=== PATIENT | female | born 1940 | race Caucasian/White ===

== ENCOUNTER 2022-07-22 23:55 | Inpatient (IN) | payer MEDICARE, OTHER ==
[~2022-07-22] VITALS: Ht 165.1 cm; Wt 67.6 kg
--- NOTE | 2022-07-23 00:20 | NUR ---
bibdebi, from [place] c/o abd distension since this morning, on room air, breathing evenly and unlabored. Kept comfortable, will continue to monitor accordingly.
[2022-07-23 00:57] LABS: BASOPHILS % (AUTO) 0.2 % (0.0-2.0); HEMATOCRIT 30 % (33-45); HEMOGLOBIN 9.8 g/dL (11.5-14.8); LYMPHOCYTES # (AUTO) 0.8 K/uL (0.8-4.8); LYMPHOCYTES % (AUTO) 6.9 % (20.0-44.0); MEAN CORPUSCULAR HGB CONC 33 g/dl (31.0-36.0); MEAN CORPUSCULAR VOLUME 89 fL (82-100); MONOCYTES % (AUTO) 8.6 % (2.0-12.0); NEUTROPHILS # (AUTO) 9.7 K/uL (1.8-8.9); NEUTROPHILS % (AUTO) 84.3 % (43.0-81.0); PLATELET COUNT (AUTO) 329 K/uL (150-450); WHITE BLOOD COUNT (AUTO) 11.5 K/uL (4.3-11.0)
--- NOTE | 2022-07-23 01:08 | NUR ---
wheeled patient to ct
[2022-07-23 01:15] LABS: ALANINE AMINOTRANSFERASE 26 U/L (12-78); ALBUMIN 2.5 g/dL (3.4-5.0); ALKALINE PHOSPHATASE 82 U/L (46-116); ASPARTATE AMINOTRANSFERASE 23 U/L (15-37); BILIRUBIN,DIRECT 0.2 mg/dL (0.0-0.2); BILIRUBIN,TOTAL 0.6 mg/dL (0.2-1.0); CALCIUM, SERUM 8.7 mg/dL (8.5-10.1); CARBON DIOXIDE 25 mmol/L (21-32); CHLORIDE 103 mmol/L (98-107); CREATININE 0.6 mg/dL (0.6-1.3); GLUCOSE 137 mg/dL (74-106); LIPASE 62 U/L (73-393); SODIUM SERUM 142 mmol/L (136-145); TOTAL PROTEIN, SERUM 6.9 g/dL (6.4-8.2); UREA NITROGEN, BLOOD 23 mg/dL (7-18)
[2022-07-23 01:19] LABS: POTASSIUM 2.5 mmol/L (3.5-5.1)
--- NOTE | 2022-07-23 01:52 | NUR ---
covid swab collected and sent to lab.
[2022-07-23] MEDS: POTASSIUM CL. PREMIX PERIPHER. 50 ML IV SCH ×4 (03:00→06:00)
[2022-07-23] MEDS ORDERED: POTASSIUM CL. PREMIX PERIPHER. 200 ML ONE (03:05)
--- NOTE | 2022-07-23 04:20 | NUR ---
epic panel paged
[2022-07-23] MEDS ORDERED: ZOLPIDEM TARTRATE 5 MG TABLET PO PRN (05:30)
[2022-07-23] MEDS ORDERED: MAG HYDROX/AL HYDROX/SIMETH 30 ML UDC PO PRN (05:30)
[2022-07-23] MEDS ORDERED: Z GUARD REMEDY 4 OZ OINT TP PRN (05:30)
[2022-07-23] MEDS ORDERED: ACETAMINOPHEN 325 MG TABLET PO PRN (05:30)
[2022-07-23] MEDS ORDERED: MAGNESIUM HYDROXIDE 30 ML UDC PO PRN (05:30)
[2022-07-23] MEDS ORDERED: ONDANSETRON HCL/PF 4 MG/2 ML VIAL IVP PRN (05:30)
[2022-07-23] MEDS ORDERED: DEXTROSE 50%-WATER 50 ML DISP.SYRIN IV PRN (05:30)
[2022-07-23] MEDS ORDERED: POTASSIUM CL. PREMIX PERIPHER. 50 ML ONE (07:39)
--- NOTE | 2022-07-23 07:55 | NUR ---
going to 307.1 admitting aware
[2022-07-23] MEDS: BLOOD SUGAR DIAGNOSTIC 1 EACH STRIP IN SCH ×4 (07:58→22:26)
--- NOTE | 2022-07-23 08:21 | NUR ---
Report given to SUZANNE Queen
--- NOTE | 2022-07-23 08:38 | NUR ---
Patient transferred to [facility], all care endorsed to SUZANNE Queen
[2022-07-23] MEDS ORDERED: PANTOPRAZOLE 40 MG VIAL IV SCH (09:00)
[2022-07-23] MEDS ORDERED: MULT-447 PO (09:15)
[2022-07-23] MEDS ORDERED: ACET-868 PO (09:15)
[2022-07-23] MEDS ORDERED: CLON0.1T PO (09:15)
[2022-07-23] MEDS ORDERED: SENN-261 PO (09:15)
[2022-07-23] MEDS ORDERED: DIVA-76 PO (09:15)
[2022-07-23] MEDS ORDERED: GLUC1KIT SQ (09:15)
[2022-07-23] MEDS ORDERED: MEGE400O5 PO (09:15)
[2022-07-23] MEDS ORDERED: ALBU2.5V38 IH (09:15)
[2022-07-23] MEDS ORDERED: PANT40TA2 PO (09:15)
[2022-07-23] MEDS ORDERED: ACET-2605 PO (09:15)
[2022-07-23] MEDS ORDERED: IPRA0.2S9 IH (09:15)
[2022-07-23] MEDS ORDERED: ASCO-352 PO (09:15)
[2022-07-23] MEDS ORDERED: GUAI100S11 PO (09:15)
[2022-07-23] MEDS ORDERED: QUET25TA PO ×2 (09:15)
[2022-07-23] MEDS ORDERED: BISA10SU11 RC (09:15)
[2022-07-23] MEDS ORDERED: MIRT-90 PO (09:15)
[2022-07-23] MEDS ORDERED: NA P133E RC (09:15)
[2022-07-23] MEDS: ZOSYN IVPB 2.25 G in IV D5W 50ml IV SCH ×3 (10:26→18:14)
[2022-07-23 12:00] VITALS: BP 123/66
[2022-07-23] MEDS ORDERED: PIPERACILLIN /TAZOBACTAM 3.375 G in IV D5W 50 ML IV SCH (13:00)
--- NOTE | 2022-07-23 13:50 | NUR ---
HEALTHCARE ADMINISTRATIVE ASSISTANT NOTES ADMITTED AN 81 YO FEMALE FROM ER WITH CC OF ABDOMINAL DISTENTION AND D OF HYPOKALEMIA , A/O X 1 WITH CONFUSION , ANGRY WHEN YOU APPROACH , ANXIOUS AGITATE EASILY AND CURSING STAFF . V/S TAKEN AND RECORDED BP 116/58, P 99 R 18 , TEMP 98.6 , O2 SAT 93 % ROOM AIR , BODY ASSESSMENT DONE AN NOTED WITH EDEMA ON BOTH LOWER EXTREMITIES , SKIN DISCOLORATION ON BOTH LOWER AND UPPER EXTREMITIES ,IV ACCESS ON LEFT FA G #18 SL , KEPT DRY AND CLEAN , JUSTICE COURT JUDGE ATTACHED WITH READING OF SR 84 PAC , NO SOB OR DISTRESS NOTED , NO C/O OF PAIN AND DISCOMFORT , SAFETY MEASURES PROVIDED , BED ON LOWEST LOCKED POSITION , CALL LIGHT WITHIN REACH , WILL CONTINUE TO MONITOR .
[2022-07-23] MEDS: LACTULOSE 10 G/15 ML UDC (PYXIS) PO SCH ×2 (14:23→20:14)
[2022-07-23 16:00] VITALS: BP 112/62
--- NOTE | 2022-07-23 18:35 | NUR ---
RN CLOSING NOTES PATIENT ON BED AWAKE , A/O X1 WITH CONFUSION AND FORGETFULNESS , ALL DUE MEDS GIVEN ORDERED , NO SOB OR DISTRESS NOTED , BS CHECKED WITH NO S/S OF HYPOGLYCEMIA , IV ACCESS LEFT FA #18 INTACT AND AND PATENT . DIET WAS CHANGED FROM NPO TO CCHO SOFT DIET AND PATIENT ABLE TOLERATE SOUP AND DRINK JUICE , URINE WAS COLLECTED AND LAB AWARE FOR EXPENSE ANALYST . KEPT DRY AND CLEAN AND ALL NEEDS ATTENDED .
--- NOTE | 2022-07-23 19:37 | NUR ---
noc rn opening note received patient sleeping easy to arouse. a/ox2. no s/s of apparent distress on room air. patient abdomen distended, oft to palpate and denies pain upon palpation. patient reports passing gas but cannot remember last BM. reading sr on the rosie monitor with 85 bpm. lfa #18 g on saline lock. safety in place-- bed in lowest, locked position, side rails upX4, bed alarm in place. will continue with patient's plan of care.
[2022-07-23 20:00] VITALS: BP 116/54
[2022-07-23 20:02] LABS: BILIRUBIN,URINE NEGATIVE (NEGATIVE); COLOR,URINE YELLOW (YELLOW); LEUKOCYTE ESTERASE ,URINE 1+ (NEGATIVE); NITRITE, URINE NEGATIVE (NEGATIVE); PROTEIN,URINE 1+ mg/dl (NEGATIVE); UGLUCOSE NEGATIVE (NEGATIVE)
[2022-07-23 20:14] LABS: CREATININE, URINE 118.4 MG/DL (30.0-125.0)
[2022-07-23 20:15] LABS: RBC,URINE 0-2 /HPF (0-2)
[2022-07-23 20:16] LABS: BACTERIA,URINE 3+ /HPF (None Seen); MUCUS,URINE Few /LPF (None Seen)
--- NOTE | 2022-07-23 20:45 | NUR ---
noc rn note Kidney ultrasound getting done at bedside at this time.
--- NOTE | 2022-07-23 22:29 | NUR ---
noc rn note patient refusing diaper change at this time. Patient is labile. wanting INTEGRATION SPECIALIST and nurse to "Get the hell out" at this time and to quote "You bunch of pussy seekers you're disturbing the peace!" will try again when patient behavior permits.
[2022-07-23] MEDS: INSULIN REGULAR, HUMAN 100 UNIT/ML 3 ML VIAL SQ PRN (22:33)
[2022-07-24] VITALS: BP 115/59
[2022-07-24] MEDS: ZOSYN IVPB 2.25 G in IV D5W 50ml IV SCH ×5 (00:10→23:47)
[2022-07-24] MEDS ORDERED: POTASSIUM CHLORIDE 20 MEQ TAB.PRT.SR PO ONE ×2 (01:30→05:30)
--- NOTE | 2022-07-24 01:38 | NUR ---
noc rn note Patient new potassium 2.9 after 4 bags given in ER. Messaged hospitalist Sumit Madera and ordered Kdur 4meq Q4 HR X2. Awaiting for order to be verified
--- NOTE | 2022-07-24 01:46 | NUR ---
noc rn note called [facility] for Kdur to be verified. awaiting.
[2022-07-24] MEDS: LACTULOSE 10 G/15 ML UDC (PYXIS) PO SCH ×6 (03:18→23:48)
--- NOTE | 2022-07-24 03:18 | NUR ---
nco rn note 0200 scheduled lactulosee given late since patient just took Kdur an hour ago. also got an admission with family members at bedside I cannot leave.
[2022-07-24 05:00] VITALS: BP 126/90
[2022-07-24 05:53] LABS: BASOPHILS % (AUTO) 0.5 % (0.0-2.0); HEMATOCRIT 29 % (33-45); HEMOGLOBIN 9.2 g/dL (11.5-14.8); LYMPHOCYTES # (AUTO) 1.4 K/uL (0.8-4.8); LYMPHOCYTES % (AUTO) 19.3 % (20.0-44.0); MEAN CORPUSCULAR HGB CONC 32 g/dl (31.0-36.0); MEAN CORPUSCULAR VOLUME 90 fL (82-100); MONOCYTES # (AUTO) 0.6 K/uL (0.1-1.30); MONOCYTES % (AUTO) 8.6 % (2.0-12.0); NEUTROPHILS # (AUTO) 5.1 K/uL (1.8-8.9); NEUTROPHILS % (AUTO) 71.6 % (43.0-81.0); PLATELET COUNT (AUTO) 296 K/uL (150-450); RED BLOOD CELL COUNT(AUTO) 3.16 MIL/uL (4.0-5.2); WHITE BLOOD COUNT (AUTO) 7.1 K/uL (4.3-11.0)
[2022-07-24 06:07] LABS: CALCIUM, SERUM 9.1 mg/dL (8.5-10.1); CREATININE 0.6 mg/dL (0.6-1.3); POTASSIUM 3.3 mmol/L (3.5-5.1)
[2022-07-24] MEDS: BLOOD SUGAR DIAGNOSTIC 1 EACH STRIP IN SCH ×4 (06:42→21:36)
[2022-07-24] MEDS: INSULIN REGULAR, HUMAN 100 UNIT/ML 3 ML VIAL SQ PRN ×2 (06:43→21:37)
--- NOTE | 2022-07-24 06:44 | NUR ---
noc rn note patient has no noted BM, abdomen still distended and soft upon palpation. Patient denies passing gas. denies N/V. Charge nurse Iris aware. No answer from hospitalist yet.
--- NOTE | 2022-07-24 07:19 | NUR ---
noc closing note all needs attended. all scheduled medications administered. will endorse to morning shift rn for continuity of care.
--- NOTE | 2022-07-24 07:35 | NUR ---
LEAF SIZE PICKER OPENING NOTE RECEIVED PATIENT AWAKE IN BED. A/OX2. PT IS ON RA BREATHING EVEN AND NON LABORED. NO S/S OF DISTRESS/SOB NOTED AT THIS TIME. NOTED DISTENDED ABDOMEN, SOFT WHILE PALPATION. NO C/O PAIN AT THIS TIME. PT IS ON EXTERNAL PROBATE CLERK READING SR @89 BPM. IV ACCESS: LEFT FA #18G, INTACT AND PATENT, SL. SAFETY MEASURES IN PLACE: BED IN LOCKED, LOWEST POSITION, SIDE RAILS UPX4. BED ALARM ON. CALL LIGHT AND BEDSIDE TABLE WITHIN EASY REACH. WILL CONTINUE TO MONITOR.
[2022-07-24 08:00] VITALS: BP 116/70
[2022-07-24] MEDS: PANTOPRAZOLE 40 MG/PACK PACK PO SCH (08:41)
--- NOTE | 2022-07-24 09:31 | NUR ---
WOUND CARE CONSULT: PT PRESENTS WITH SACRAL INTACT DEEP TISSUE INJURY, PRESENT ON ADMISSION. PT ALSO NOTED TO HAVE DISCOLORATION TO LOWER LEGS, PRESENT ON ADMISSION. DISCUSSED SKIN PROTECTION WITH NURSING STAFF. PT IS INCONTINENT. MD IN AGREEMENT WITH PLAN OF CARE.
[2022-07-24] MEDS ORDERED: POTASSIUM CHLORIDE 20 MEQ POWDER PACKET PO ONE (10:00)
[2022-07-24 12:00] VITALS: BP 127/72
[2022-07-24 15:58] VITALS: BP 143/64
[2022-07-24] MEDS: PROSOURCE / PROSTAT (PYXIS) 30 ML UDC GT SCH (16:50)
[2022-07-24] MEDS: GLUCERNA SHAKE 237 ML CAN PO SCH (16:51)
--- NOTE | 2022-07-24 18:36 | NUR ---
DOCUMENT IMPROVEMENT SPECIALIST CLOSING NOTE PATIENT AWAKE IN BED. A/OX2 WITH CONFUSION. PT IS ON RA BREATHING EVEN AND NON LABORED. NO S/S OF DISTRESS/SOB NOTED AT THIS TIME. NOTED DISTENDED ABDOMEN, SOFT WHILE PALPATION, PT HAD BMX1 DURING THE SHIFT. APPLIED PUREWICK FOR THE PATIENT PER JENNYFER REQUEST, WOUND NURSE. NO C/O PAIN AT THIS TIME. PT IS ON EXTERNAL HAIR DRESSER READING ST @104 BPM. IV ACCESS: LEFT FA #18G, INTACT AND PATENT, SL. KEPT PT C/D/I, REPOSITIONED Q2H, OFFLOADED B HEELS. SAFETY MEASURES IN PLACE: BED IN LOCKED, LOWEST POSITION, SIDE RAILS UPX4. BED ALARM ON. CALL LIGHT AND BEDSIDE TABLE WITHIN EASY REACH. WILL ENDORSE TO ONCOMING SHIFT NURSE FOR TAMARA.
--- NOTE | 2022-07-24 19:20 | NUR ---
NIKE ATHLETE OPENING NOTE RECEIVED PT AWAKE IN BED. A/O X1-2 AND ABLE TO MAKE NEEDS KNOWN. PT STABLE ON ROOM AIR. NO SOB OR S/S OF RESPIRATORY DISTRESS. BREATHING EVEN AND UNLABORED. ON EXTERNAL SPECIAL SERVICE REPRESENTATIVE READING ST 106 BPM. WITH IV ACCESS LFA 18G SL, INTACT AND PATENT. WITH PURWICK DRAINING BY SUCTION. SAFETY PRECAUTIONS IN PLACE. BED IN LOWEST LOCKED POSITION, HOB ELEVATED, SIDE RAILS UP X3, AND CALL LIGHT AND TABLE WITHIN REACH. ALL NEEDS MET AT THIS TIME.
[2022-07-24 20:00] VITALS: BP 109/43
[2022-07-25] VITALS: BP 157/61
[2022-07-25] MEDS: LACTULOSE 10 G/15 ML UDC (PYXIS) PO SCH ×5 (04:00→21:03)
--- NOTE | 2022-07-25 04:43 | NUR ---
RN NOTE PT REFUSED LACTULOSE AT THIS TIME. STATED "I JUST WANNA SLEEP. GO AWAY". ATTEMPTED EDUCATION BUT PT STILL REFUSED. ALL NEEDS MET AT THIS TIME.
[2022-07-25] MEDS: ZOSYN IVPB 2.25 G in IV D5W 50ml IV SCH ×3 (06:04→17:49)
--- NOTE | 2022-07-25 06:33 | NUR ---
B2B SALES PROFESSIONAL CLOSING NOTE PT AWAKE IN BED. A/O X1-2 AND ABLE TO MAKE NEEDS KNOWN. LABILE MOOD, CURSING AND YELLING THIS AM, REFUSING LAB DRAW AND BLOOD SUGAR CHECK. PT STABLE ON ROOM AIR. NO SOB OR S/S OF RESPIRATORY DISTRESS. BREATHING EVEN AND UNLABORED. ON EXTERNAL SUPERVISOR ADULT EDUCATION READING SR 82 BPM. WITH IV ACCESS LFA 18G SL, INTACT AND PATENT, RUNNING ZOSYN @ 100 ML/HR. PURWICK REMOVED BY PT AND REFUSING PLACEMENT THIS AM. SAFETY PRECAUTIONS IN PLACE AT ALL TIMES. BED IN LOWEST LOCKED POSITION, HOB ELEVATED, SIDE RAILS UP X3, AND CALL LIGHT AND TABLE WITHIN REACH. ALL NEEDS MET AT THIS TIME AND WILL ENDORSE TO ONCOMING NURSE FOR TAMARA.
--- NOTE | 2022-07-25 07:26 | NUR ---
TELEPHONE EXCHANGE OPERATOR OPENING NOTE RECEIVED PT AWAKE AND RESTING IN BED. PT IS A/O X1, CONFUSED. REORIENTED PT NEEDED. PT IS ON ROOM AIR, TOLERATING WELL. NO SOB NOTED. NOT IN ANY SIGN OF RESPIRATORY DISTRESS. PT ON TELE INTELLIGENCE CONSULTANT WITH CURRENT READING OF SINUS RHYTHM, HR 70. NO C/O CARDIAC DISTRESS VOICED OUT AT THIS TIME. IV ACCESS ON LFA G#18 INTACT, AND PATENT. SAFETY MEASURES IN PLACE: BED IN LOWEST AND LOCKED POSITION, SIDE RAILS UP X3, BED ALARM ON, AND CALL LIGHT WITHIN REACH. WILL CONTINUE PT WITH PLAN OF CARE.
[2022-07-25 08:00] VITALS: BP 111/59
[2022-07-25] MEDS: BLOOD SUGAR DIAGNOSTIC 1 EACH STRIP IN SCH ×4 (08:27→22:58)
[2022-07-25] MEDS: INSULIN REGULAR, HUMAN 100 UNIT/ML 3 ML VIAL SQ PRN ×4 (08:28→22:58)
[2022-07-25] MEDS: GLUCERNA SHAKE 237 ML CAN PO SCH ×2 (08:28→17:16)
[2022-07-25] MEDS: PANTOPRAZOLE 40 MG/PACK PACK PO SCH (09:00)
[2022-07-25] MEDS: PROSOURCE / PROSTAT (PYXIS) 30 ML UDC GT SCH ×2 (09:00→17:23)
[2022-07-25 09:24] LABS: BASOPHILS % (AUTO) 0.5 % (0.0-2.0); HEMATOCRIT 28 % (33-45); LYMPHOCYTES # (AUTO) 1.3 K/uL (0.8-4.8); LYMPHOCYTES % (AUTO) 17.8 % (20.0-44.0); MEAN CORPUSCULAR HGB CONC 32 g/dl (31.0-36.0); MEAN CORPUSCULAR VOLUME 91 fL (82-100); MONOCYTES # (AUTO) 0.5 K/uL (0.1-1.30); MONOCYTES % (AUTO) 7.6 % (2.0-12.0); NEUTROPHILS # (AUTO) 5.3 K/uL (1.8-8.9); NEUTROPHILS % (AUTO) 74.1 % (43.0-81.0); PLATELET COUNT (AUTO) 293 K/uL (150-450); WHITE BLOOD COUNT (AUTO) 7.1 K/uL (4.3-11.0)
--- NOTE | 2022-07-25 09:30 | NUR ---
RN NOTE PT REFUSED ALL HER MEDICATIONS SCHEDULED AT 0900. EXPLAINED RISK AND BENEFITS, PT STILL REFUSED.
[2022-07-25 10:15] LABS: ALKALINE PHOSPHATASE 71 U/L (46-116); BILIRUBIN,TOTAL 0.3 mg/dL (0.2-1.0); CALCIUM, SERUM 8.7 mg/dL (8.5-10.1); CARBON DIOXIDE 25 mmol/L (21-32); CHLORIDE 110 mmol/L (98-107); CREATININE 0.6 mg/dL (0.6-1.3); GLUCOSE 108 mg/dL (74-106); PHOSPHORUS 3.5 mg/dL (2.5-4.9); POTASSIUM 3.3 mmol/L (3.5-5.1); SODIUM SERUM 145 mmol/L (136-145); UREA NITROGEN, BLOOD 17 mg/dL (7-18)
[2022-07-25 10:16] LABS: ALBUMIN 2.1 g/dL (3.4-5.0); ASPARTATE AMINOTRANSFERASE 16 U/L (15-37); MAGNESIUM 2.1 mg/dL (1.8-2.4); TOTAL PROTEIN, SERUM 6.2 g/dL (6.4-8.2)
[2022-07-25 10:25] LABS: ALANINE AMINOTRANSFERASE 22 U/L (12-78)
--- NOTE | 2022-07-25 11:12 | NUR ---
RN NOTE CALLED DR. JESSICA CAMPBELL MADE HIM AWARE THAT PT'S VTE SCORE IS 5 AND NO ANTICOAGULANT ORDER. PER MD TO START PT ON LOVENOX 40MG SQ DAILY. ORDERS CARRIED OUT.
--- NOTE | 2022-07-25 12:16 | NUR ---
RN NOTE PT REFUSED HER LACTULOSE MEDICATION SCHEDULED AT 1200. EXPLAINED RISK AND BENEFITS, PT STILL REFUSED.
[2022-07-25 16:00] VITALS: BP 118/65
--- NOTE | 2022-07-25 18:47 | NUR ---
DRILLER AND BROACHER CLOSING NOTE PT AWAKE AND RESTING IN BED. PT IS A/O X1, CONFUSED. REORIENTED PT NEEDED. PT IS ON ROOM AIR, TOLERATING WELL. NO SOB NOTED. NOT IN ANY SIGN OF RESPIRATORY DISTRESS. PT ON TELE TOURIST ESCORT WITH CURRENT READING OF SINUS RHYTHM, HR 75. NO C/O CARDIAC DISTRESS VOICED OUT AT THIS TIME. IV ACCESS ON LFA G#18 INTACT, AND PATENT. ALL NEEDS ATTENDED KEPT CLEAN AND COMFORTABLE AT ALL TIMES. TURNED AND REPOSITIONED Q2HRS AND NEEDED. SAFETY MEASURES IN PLACE: BED IN LOWEST AND LOCKED POSITION, SIDE RAILS UP X3, BED ALARM ON, AND CALL LIGHT WITHIN REACH. WILL ENDORSE TO DIGESTION OPERATOR NURSE FOR TAMARA.
--- NOTE | 2022-07-25 19:30 | NUR ---
COMPUTER PROGRAMMER OPENING NOTE PATIENT AWAKE IN BED, ALERT/ORIENTED X 1, PT CONFUSED. PT STABLE ON RA, NO S/S OF DISTRESS OR SOB NOTED, BREATHING EVEN AND UNLABORED. PT ON EXTERNAL CLOUD CONSULTANT READING SINUS RHYTHM, HR: 73. IV ACCESS ON LFA #18G INTACT AND SALINE LOCKED. PATIENT TO BE NPO POST MIDNIGHT FOR XR SMALL BOWEL THROUGH, WILL CALL FAMILY FOR CONSENT. SAFETY MEASURES IN PLACE: CALL LIGHT WITHIN REACH, SIDE RAILS UP X 3, BED LOCKED IN LOWEST POSITION, HOB ELEVATED, BED ALARM ON. WILL CONTINUE TO MONITOR PATIENT
[2022-07-25 20:00] VITALS: BP 133/76
[2022-07-25] MEDS: ENOXAPARIN SODIUM 40 MG/0.4 ML DISP.SYRIN SQ SCH (21:04)
--- NOTE | 2022-07-25 21:17 | NUR ---
DENTURE WAXER NOTE CALLED SON KIRIT TO OBTAIN CONSENT FOR SMALL BOWEL FOLLOW THROUGH, NO ANSWER, WENT STRAIGHT TO VOICEMAIL. LEFT VOICEMAIL INFORMING HIM TO CALL US BACK
[2022-07-26] VITALS: BP 112/58
[2022-07-26] MEDS: ZOSYN IVPB 2.25 G in IV D5W 50ml IV SCH ×5 (00:15→23:03)
--- NOTE | 2022-07-26 00:16 | NUR ---
PUBLIC RELATIONS ACCOUNT EXECUTIVE NOTE PATIENT NPO FOR SMALL BOWEL FOLLOW THROUGH, LACTULOSE FOR MIDNIGHT AND 4 AM WILL BE HELD
[2022-07-26 04:00] VITALS: BP 139/75
[2022-07-26] MEDS: LACTULOSE 10 G/15 ML UDC (PYXIS) PO SCH ×7 (04:00→23:28)
[2022-07-26] MEDS: INSULIN REGULAR, HUMAN 100 UNIT/ML 3 ML VIAL SQ PRN ×3 (06:33→17:07)
[2022-07-26] MEDS: BLOOD SUGAR DIAGNOSTIC 1 EACH STRIP IN SCH ×4 (06:33→22:13)
--- NOTE | 2022-07-26 06:59 | NUR ---
FILM OR VIDEOTAPE EDITOR CLOSING NOTE PATIENT SLEEPING IN BED, ALERT/ORIENTED X 1, PT CONFUSED, LABILE MOOD, CURSING/YELLING RACIAL SLURS/AGGRESSIVE BEHAVIOR/HITTING WHEN PROVIDING HYGIENE CARE THIS AM. PT STABLE ON RA, NO S/S OF DISTRESS OR SOB NOTED, BREATHING EVEN AND UNLABORED. PT ON EXTERNAL NUMERICAL CONTROL LATHE OPERATOR READING SINUS RHYTHM WITH OCCASIONAL PVC'S, HR: 77. IV ACCESS ON LFA #18G INTACT AND INFUSING ZOSYN @ 100 ML/HR. PATIENT KEPT NPO POST MIDNIGHT FOR XR SMALL BOWEL THROUGH, ATTEMPTED TO CALL SON FOR CONSENT X 2 BUT WENT STRAIGHT TO VOICEMAIL, LEFT VM TO CALL BACK. MEDICATIONS GIVEN ORDERED, PT NEEDS MET THROUGHOUT SHIFT. SAFETY MEASURES IN PLACE: CALL LIGHT WITHIN REACH, SIDE RAILS UP X 3, BED LOCKED IN LOWEST POSITION, HOB ELEVATED, BED ALARM ON. WILL ENDORSE TO DAYSHIFT RN FOR CONTINUITY OF CARE
--- NOTE | 2022-07-26 07:27 | NUR ---
SALES ENABLEMENT CONSULTANT OPENING NOTE RECEIVED PT AWAKE AND RESTING IN BED. PT IS A/O X1, CONFUSED. REORIENTED PT NEEDED. PT IS ON ROOM AIR, TOLERATING WELL. NO SOB NOTED. NOT IN ANY SIGN OF RESPIRATORY DISTRESS. PT ON TELE FUR VAULT ATTENDANT WITH CURRENT READING OF SINUS RHYTHM, HR 80. NO C/O CARDIAC DISTRESS VOICED OUT AT THIS TIME. IV ACCESS ON LFA G#18 INTACT, AND PATENT. SAFETY MEASURES IN PLACE: BED IN LOWEST AND LOCKED POSITION, SIDE RAILS UP X3, BED ALARM ON, AND CALL LIGHT WITHIN REACH. WILL CONTINUE PT WITH PLAN OF CARE.
[2022-07-26 08:00] VITALS: BP 151/70
[2022-07-26] MEDS: GLUCERNA SHAKE 237 ML CAN PO SCH ×2 (08:23→17:07)
[2022-07-26] MEDS: PROSOURCE / PROSTAT (PYXIS) 30 ML UDC GT SCH ×2 (08:34→17:00)
[2022-07-26] MEDS: PANTOPRAZOLE 40 MG/PACK PACK PO SCH (08:34)
--- NOTE | 2022-07-26 08:35 | NUR ---
RN NOTE PT REFUSED ALL HER MEDICATIONS SCHEDULED AT 0800 AND 0900. EXPLAINED RISK AND BENEFITS, PT STILL REFUSED. PT STATED, "GET OUT OF HERE YOU WORM".
--- NOTE | 2022-07-26 09:00 | NUR ---
RN NOTE RECEIVED A CALL FROM THE PT'S SON, KIRIT. PER KIRIT HE WAS CALLING BACK IN REGARDS TO THE MANAGER OF EMPLOYEE RELATIONS NURSE CALL IN REGARDS TO THE XRAY SMALL BOWEL. ATTEMPTED TO OBTAIN CONSENT FROM FOR AN XRAY SMALL BOWEL FOLLOW THROUGH. PT'S SON REFUSED TO HAVE THE PROCEDURE OF XRAY DONE BECAUSE HE WAS WORRIED OF PT'S ALLERGIES TO SHELLFISH AND FISH.
--- NOTE | 2022-07-26 09:15 | NUR ---
RN NOTE CALLED SAAD AND CLARIFIED THE TYPE OF SOLUTION THAT PT WILL HAVE FOR XRAY SMALL BOWEL FOLLOW THROUGH AND ASKED IF THIS SOLUTION IS OK FOR THE PT WITH ALLERGIES TO FISH AND SHELLFISH. PER SAAD PHARMACIST, AFTER CHECKING, HE DOES NOT SEE ANYTHING THAT WILL CAUSE ALLERGIES TO THE PT BUT UNSURE THE FULL DETAILS.
[2022-07-26] MEDS ORDERED: OLANZAPINE 10 MG VIAL IM ONE (13:00)
[2022-07-26] MEDS: DIVALPROEX SODIUM 250 MG TABLET.DR PO SCH ×2 (13:00→17:15)
[2022-07-26] MEDS ORDERED: ALBUTEROL FS 2.5 MG/3 ML VIAL.NEB IH PRN (13:00)
[2022-07-26] MEDS ORDERED: IPRATROPIUM NEB FS 0.5 MG/2.5 ML AMPUL.NEB IH PRN (13:00)
[2022-07-26] MEDS ORDERED: CLONIDINE HCL 0.1 MG TABLET PO PRN (13:00)
[2022-07-26] MEDS ORDERED: NA PHOS,M-B/NA PHOS,DI-BA 1 EA ENEMA RC PRN (13:00)
[2022-07-26] MEDS: QUETIAPINE FUMARATE 25 MG TABLET PO SCH ×2 (17:15→22:05)
[2022-07-26] MEDS: MIRTAZAPINE 15 MG TABLET PO SCH (17:15)
--- NOTE | 2022-07-26 18:44 | NUR ---
BOARD MIXER TENDER CLOSING NOTE PT AWAKE AND RESTING IN BED. PT IS A/O X1, CONFUSED. REORIENTED PT NEEDED. PT IS ON ROOM AIR, TOLERATING WELL. NO SOB NOTED. NOT IN ANY SIGN OF RESPIRATORY DISTRESS. PT ON TELE SECTION CUTTER WITH CURRENT READING OF SINUS RHYTHM, HR 80. NO C/O CARDIAC DISTRESS VOICED OUT AT THIS TIME. IV ACCESS ON LFA G#18 INTACT, AND PATENT. ALL NEEDS ATTENDED. KEPT CLEAN AND COMFORTABLE AT ALL TIMES. TURNED AND REPOSITIONED Q2HRS AND NEEDED. SAFETY MEASURES IN PLACE: BED IN LOWEST AND LOCKED POSITION, SIDE RAILS UP X3, BED ALARM ON, AND CALL LIGHT WITHIN REACH. WILL ENDORSE TO JAVA APPLICATION ENGINEER NURSE FOR TAMARA.
--- NOTE | 2022-07-26 19:06 | NUR ---
RN NOTES: RECEIVED AWAKE ON BED, SEMI FOWLERS POSITION,A/OX1 WITH PERIODS OF CONFUSION AND FORGETFULNESS, RN INTRODUCE HERSELF TO ESTABLISHED TRUST, AND ORIENTED TO UNIT AND STAFF, AT FIRST SHE LOOKS SUSPICIOUS BUT LATER ON RESPONDING TO QUESTIONS ASKED, INCONTINENT B/B,ROOM AIR, ON TELE MONITOR - SR WITH PVC-70'S, IV CANNULA ON THE LFA G#18 INTACT AND PATENT, SAFETY PRECAUTION OBSERVED, BED LOW AND LOCKED, KEPT CALL LIGHT WITHIN EASY REACH, FOR POSSIBLE X-RAY OF SMALL BOWEL THROUGH, SHE WAS KEPT NPO LAST NIGHT BUT PROCEDURE NOT DONE TODAY, PER ENDORSEMENT SON REFUSED DUE TO HER ALLERGIES,HER ABDOMEN IS ENLARGE, NON TENDER, ABLE TO TOLERATED SLIGHT PALPATION, NOT HARD BOUND, NO COMPLAINTS OF DISCOMFORT, NO SOB, NON LABORED BREATHING,BOWEL SOUND PRESENT ON 4 QUADRANTS.ON CLOSE WATCH.
[2022-07-26 20:00] VITALS: BP 126/67
[2022-07-26] MEDS: ENOXAPARIN SODIUM 40 MG/0.4 ML DISP.SYRIN SQ SCH (20:59)
--- NOTE | 2022-07-26 21:09 | NUR ---
RN NOTES: EXPLAINED GENTLY BY RN WHAT WILL BE DONE, COOPERATIVE TO CARE, AGREE FOR LACTULOSE SHE DRINK ALL AND LOVENOX SQ GIVEN WITHOUT ANY RESISTANCE.
--- NOTE | 2022-07-26 21:10 | NUR ---
RN NOTES: SPOKE WITH JOSE MANUEL-X-RAY DEPT,NO NEED CONSENT FOR THE XRAY-SMALL BOWEL FOLLOW THROUGH, HE EXPLAINED IT CAN BE A LONG DAY PROCESS DEPENDING ON THE DOCTORS AND LEVEL OF OBSTRUCTION, SHE NEED TO DRINK A 3 CUPS OF CONTRAST AND START X-RAY Q 15 MIN WITHIN HOUR, DURATION VARIES FROM CASE TO CASE BASIS.WILL ENDORSE TO F/U IN THE MORNING FOR HER SCHEDULE AND F/U WITH FAMILY IF HIS SON WILL AGREE.
--- NOTE | 2022-07-26 22:13 | NUR ---
RN NOTES: ABLE TO SLEEP AND REST, AWAKEN, EXPLAINED TO HER SHE HAS TO TAKE HER ORAL MEDS AND WILL CHECK BLOOD SUGAR, COOPERATIVE, BS CHECKED-103, NO INSULIN PER SCALE, WILL CONTINUE TO MONITOR FOR ANY SIGN OF HYPER AND HYPOGLYCEMIA.
--- NOTE | 2022-07-26 22:58 | NUR ---
RN NOTES: REPOSITIONED, COMPLAINED OF MILD ABDOMINAL PAIN,NON PHARMACOLOGIC INTERVENTION RENDERED, WARM BLANKET AND OFFERED TYLENOL, SHE SAID "I KNOW THAT, THAT HELPS ME, I USE TO TAKE THAT",
--- NOTE | 2022-07-26 23:25 | NUR ---
RN NOTES: NOTICED HER ABDOMEN IS ENLARGE, MEASURED-43 INCHES,WILL CONTINUE TO MONITOR GIVEN LACTULOSE. Addendum: 07/26/22 at 2348 by JOSE A NICHOLAS RN ADDED NOTES: CHARGE NURSE MADE AWARE,SUGGEST TO GIVE PRUNE JUICE SO THAT SHE WILL HAVE BM, SHE WAS COOPERATIVE SHE DRINK IT ALL.
[2022-07-27] VITALS: BP 114/80
--- NOTE | 2022-07-27 01:35 | NUR ---
RN NOTES: AROUND 0100 SHE HAD A LARGE BM, CLEAN AND CHANGE, COMPLAINED OF MILD ABDOMINAL PAIN,REPOSITIONED, THEN SHE FELT MUCH BETTER, NOTFIED CN ABDOMINAL GIRTH REMAINS THE SAME 43 INCHES. KEPT ON CLOSE WATCH, NOTED WITH ON AND OFF COUGH 3X ONLY, THEN DISAPPEAR, ON CLOSE WATCH.ON FREQUENT VISUAL CHECK.NON LABORED BREATHING.
[2022-07-27 04:00] VITALS: BP 123/74
[2022-07-27] MEDS: LACTULOSE 10 G/15 ML UDC (PYXIS) PO SCH ×6 (04:06→23:58)
[2022-07-27] MEDS: ZOSYN IVPB 2.25 G in IV D5W 50ml IV SCH ×4 (05:07→23:56)
--- NOTE | 2022-07-27 05:32 | NUR ---
RN NOTES: SHE TOOK ONLY FEW SIPS OF HER LACTULOSE FOR MORNING DOSE,LAST NIGHT 2 DOSES SHE DRINK ALL, SHE ALLOWED BLOOD EXTRACTION AFTER rn EXPLAINED TO HER, BLOOD SUGAR-101, AFTER THAT SHE LOOKS AGITATED, SHE REFUSED TO MEASURE HER ABDOMINAL GIRTH, GIVEN SOMETIME TO CALM DOWN, SHE CLOSE HER EYES AND GO BACK TO SLEEP.
[2022-07-27 05:57] LABS: BASOPHILS % (AUTO) 0.8 % (0.0-2.0); EOSINOPHILS % (AUTO) 0.1 % (0.0-6.0); HEMATOCRIT 29 % (33-45); HEMOGLOBIN 9.4 g/dL (11.5-14.8); LYMPHOCYTES # (AUTO) 1.6 K/uL (0.8-4.8); LYMPHOCYTES % (AUTO) 30.9 % (20.0-44.0); MEAN CORPUSCULAR HGB CONC 33 g/dl (31.0-36.0); MEAN CORPUSCULAR VOLUME 90 fL (82-100); MONOCYTES # (AUTO) 0.5 K/uL (0.1-1.30); MONOCYTES % (AUTO) 9.4 % (2.0-12.0); NEUTROPHILS % (AUTO) 58.8 % (43.0-81.0); PLATELET COUNT (AUTO) 340 K/uL (150-450); RED BLOOD CELL COUNT(AUTO) 3.21 MIL/uL (4.0-5.2)
[2022-07-27 06:18] LABS: SODIUM SERUM 145 mmol/L (136-145)
[2022-07-27 06:19] LABS: CALCIUM, SERUM 9.1 mg/dL (8.5-10.1); CARBON DIOXIDE 24 mmol/L (21-32); CHLORIDE 109 mmol/L (98-107); CREATININE 0.5 mg/dL (0.6-1.3); GLUCOSE 101 mg/dL (74-106); PHOSPHORUS 3.4 mg/dL (2.5-4.9); UREA NITROGEN, BLOOD 26 mg/dL (7-18)
[2022-07-27 06:20] LABS: MAGNESIUM 2.3 mg/dL (1.8-2.4)
[2022-07-27 06:34] LABS: POTASSIUM 2.6 mmol/L (3.5-5.1)
--- NOTE | 2022-07-27 06:44 | NUR ---
RN NOTES: K-2.6, RELAYED TO DR. DYLLAN LOPEZ , ORDERED TO GIVE KLC 6O mEq IV, NOTED.UPON CLEANING FOUND A NEW SKIN ABRASION ON HER RIGHT GROIN ON THE BRIEF AREA,PICTURE TAKE, NOTIFIED ELECTRICAL INSTALLER.
[2022-07-27] MEDS ORDERED: POTASSIUM CHLORIDE 10 MEQ/50 ML PREMIXED IVPB FOR PERIPHERAL LINE IV ONE (07:00)
--- NOTE | 2022-07-27 07:15 | NUR ---
RETAIL FIELD REPRESENTATIVE OPENING NOTE RECEIVED PT SLEEPING IN BED, EASILY AWAKEN, A/O X1, CONFUSED BUT REDIRECTIBLE, CALM. ON ROOM AIR BREATHING WITHOUT DIFFICULTY, NO SOB NOR ANY ACUTE RESPIRATORY DISTRESS NOTED. ON TELEMONITORING WITH CURRENT READING OF SINUS RHYTHM 78 HR. IV ACCESS ON LFA G#18 INTACT, PATENT, AND FLUSHING WELL. ABDOMEN IS DISTENDED ABOUT 41" AT THIS TIME. PATIENT DENIES PAIN NOR DISCOMFOR. SAFETY MEASURES IN PLACE: BED IN LOWEST AND LOCKED POSITION, SIDE RAILS UP X3, BED ALARM ON, AND CALL LIGHT AND TRAY TABLE WITHIN REACH. WILL CONTINUE PT WITH PLAN OF CARE.
--- NOTE | 2022-07-27 07:26 | NUR ---
RN NOTES: LYING ON BED, ASLEEP, SR-70, NO COMPLAINTS OF ANY ABDOMINAL DISCOMFORT AT THIS TIME, LATEST ABDOMINAL GIRTH-41 INCHES, F/U OTHER PENDING LAB RESULTS, PENDING X-RAY MLL BOWEL FOLLOW THROUGH ENDORSED TO NOTIFY SON IF HE WILL AGREE, NO NEED CONSENT, KEPT NPO POST MIDNIGHT, LATEST BLOOD SUGAR-101, ENDORSED FOR CONTINUITY OF CARE. KCL 60 mEq IV TO BE GIVEN.
[2022-07-27] MEDS: BLOOD SUGAR DIAGNOSTIC 1 EACH STRIP IN SCH ×4 (07:40→21:41)
[2022-07-27] MEDS: PANTOPRAZOLE 40 MG TABLET.DR PO SCH (07:43)
[2022-07-27] MEDS: GLUCERNA SHAKE 237 ML CAN PO SCH ×2 (07:49→16:09)
[2022-07-27 08:00] VITALS: BP 125/71
[2022-07-27] MEDS ORDERED: POTASSIUM CL. PREMIX PERIPHER. 50 ML IV SCH (08:00)
--- NOTE | 2022-07-27 08:04 | NUR ---
RN NOTES- RODRIGO GLITCH - QUETIAPINE 25 MG WAS SKIPPED UPON PULLING OUT. NOTHING WAS TAKEN THE FIRST TIME. TRIED AGAIN AND GOT 1 TABLET, WASTED 12.5 MG ORDERED.
[2022-07-27] MEDS: MEGESTROL ACETATE SUSP 400 MG/10 ML UDC PO SCH (08:09)
[2022-07-27] MEDS: QUETIAPINE FUMARATE 25 MG TABLET PO SCH ×3 (08:10→21:32)
[2022-07-27] MEDS: DIVALPROEX SODIUM 250 MG TABLET.DR PO SCH ×3 (08:10→16:09)
[2022-07-27] MEDS: ASCORBIC ACID 500 MG TABLET PO SCH (08:11)
--- NOTE | 2022-07-27 08:13 | NUR ---
RN NOTES - MEDICATION FOLLOW UP PROSTAT IS NOT AVAILABLE, CALLED KITCHEN TO REFILL PANTOPRAZOLE WAS ENTERED TWICE - PHARMACIST TO REMOVED PANTOPRAZOLE DELMER
--- NOTE | 2022-07-27 08:37 | NUR ---
RN NOTES - DVT PUMP ORDERED THRU CENTRAL SUPPLY
[2022-07-27] MEDS: PROSOURCE / PROSTAT (PYXIS) 30 ML UDC GT SCH ×2 (08:59→16:09)
--- NOTE | 2022-07-27 09:00 | NUR ---
RN NOTES - DVT PUMP APPLIED ON BILATERAL LEGS
--- NOTE | 2022-07-27 09:27 | NUR ---
RN NOTES - PT COMPLAINING OF R FOREARM BURNING SENSATION, SLOWED DOWN KCL 10MEQ IV INFUSION FROM 50 ML/HR TO 30/ML AND INFORMED CUFFING MACHINE OPERATOR SHANNAN. HE ORDERED TO SWITCH IT TO KCL WITH LIDOCAINE. CALLED PHARMACY AND PLACED THE ORDER FOR 5 MORE BAGS. RETURNED THE ORIGINAL BAGS.
--- NOTE | 2022-07-27 10:04 | NUR ---
RN NOTES - RECEIVED A CALL FROM XRAY - PATIENT WILL BE HAVING SMALL BOWEL FOLLOW THROUGH- PATIENT IS ABLE TO SWALLOW AND ABLE TO FOLLOW COMMANDS. THEY ARE CONCERNED THAT THE PATIENT MAY NOT TAKE THE CONTRAST. THEY WILL ATTEMPT, IF NOT NGT WILL BE INSERTED AND WILL TRY AGAIN.
[2022-07-27] MEDS: Potassium Chloride 10 MEQ, LIDOCAINE HCL/PF 1% 1 ML in IV NS 0.9% 50 ML IV SCH ×5 (10:25→14:18)
--- NOTE | 2022-07-27 10:40 | NUR ---
RN NOTES - PATIENT TAKEN BY 2 XRAY TECHS DOWN VIA HER BED FOR BOWEL FOLLOW THROUGH, PATIENT IS COOPERATIVE AND CALM AND VERBALIZED WILLINGNESS TO TAKE THE CONTRAST DYE.
[2022-07-27] MEDS ORDERED: DIATR MEGLU/DIATRIZOATE SODIUM 120 ML BOTTLE (GASTROGRAPHIN) ONE (10:56)
--- NOTE | 2022-07-27 11:31 | NUR ---
RN NOTES - RECEIVED A CALL FROM XRAY DEPT THAT PATIENT ISNT COOPERATING WITH THE INTAKE OF THE DYE. WENT DOWN AND SPOKE WITH THE PATIENT, SHE REFUSED TO TAKE IT, WAS ANXIOUS TO A POINT OF SCREAMING. INFORMED SECONDARY MARKET MANAGER SHANNAN, AWAITING RESPONSE TO PLACE NGT TUBE INSTEAD. WILL CONTINUE TO MONITOR.
--- NOTE | 2022-07-27 11:35 | NUR ---
PT REFUSING TO DRINK CONTRAST FOR SMALL BOWEL FOLLOW , RN MENDOZA SCHAFFER
[2022-07-27 12:00] VITALS: BP 140/69
--- NOTE | 2022-07-27 12:30 | NUR ---
RN NOTES -ISAI CAMPBELL AWARE OF THE REFUSAL OF PATIENT TO UNDERGO SBFT PROCEDURE. ASKED TO CANCEL IT, CALLED XRAY TO INFORM.
--- NOTE | 2022-07-27 13:00 | NUR ---
RN NOTES - ABDOMINAL GIRTH = 38", CHANGED PATIENT DIAPER LET LARGE LIQUID BROWN BM AND GAS.
--- NOTE | 2022-07-27 15:30 | NUR ---
RN NOTES - ABDOMINAL GIRTH MEASURED AT 40". PATIENT DENIES PAIN NOR DISCOMFORT. WILL CONTINUE TO MONITOR.
[2022-07-27 16:00] VITALS: BP 129/71
[2022-07-27] MEDS: MIRTAZAPINE 15 MG TABLET PO SCH (17:14)
[2022-07-27] MEDS: INSULIN REGULAR, HUMAN 100 UNIT/ML 3 ML VIAL SQ PRN ×3 (17:24→21:48)
--- NOTE | 2022-07-27 18:00 | NUR ---
RN NOTES - ISAI CAMPBELL AWARE OF CURRENT ABDOMINAL CIRCUMFERENCE OF 41" AT THE MOMENT AND 2X WATERY STOOL. NO NEW ORDERS GIVEN.
--- NOTE | 2022-07-27 19:24 | NUR ---
EMERGENCY RESPONSE OFFICER CLOSING NOTE PT AWAKE IN BED, A/O X1, CONFUSED BUT CALM. STILL ON ROOM AIR BREATHING WITHOUT DIFFICULTY. NO ACUTE RESPIRATORY DISTRESS DURING MY SHIFT. ON TELEMONITORING WITH CURRENT READING OF SINUS RHYTHM 75 HR. STILL WITH IV ACCESS ON LFA G#18 SALINE LOCK INTACT, PATENT, AND FLUSHING WELL. ABDOMEN IS STILL DISTENDED ABOUT 41". PATIENT HAD 2 WATERY BM DURING MY SHIFT. PATIENT DENIED PAIN NOR DISCOMFORT. SAFETY MEASURES MAINTAINED: BED IN LOWEST AND LOCKED POSITION, SIDE RAILS UP X3, BED ALARM ON, AND CALL LIGHT AND TRAY TABLE WITHIN REACH. ENDORSED TO BOX TOE BUFFER NURSE.
--- NOTE | 2022-07-27 19:30 | NUR ---
noc rn opening received patient in bed, pleasant at this time oriented to name only. no s/s of apparent distress in room air. denies pain at this time. reading sr on the tele monitor at this time. Abdomen distended and hard to palpate at this time. denies feeling pain upon palpation, denies N/V. per report patient passes a lot of gas. will monitor the girth. LFA 18g noted to be intact. safety in place. will continue with patient's plan of care.
[2022-07-27 20:00] VITALS: BP 135/81
[2022-07-27] MEDS: ENOXAPARIN SODIUM 40 MG/0.4 ML DISP.SYRIN SQ SCH (21:32)
[2022-07-28] VITALS: BP 130/73
[2022-07-28 04:00] VITALS: BP 110/71
[2022-07-28] MEDS: LACTULOSE 10 G/15 ML UDC (PYXIS) PO SCH ×6 (04:06→23:38)
[2022-07-28] MEDS: ZOSYN IVPB 2.25 G in IV D5W 50ml IV SCH ×4 (05:56→23:38)
[2022-07-28 05:59] LABS: BASOPHILS % (AUTO) 0.2 % (0.0-2.0); HEMATOCRIT 31 % (33-45); HEMOGLOBIN 10.1 g/dL (11.5-14.8); LYMPHOCYTES # (AUTO) 1.6 K/uL (0.8-4.8); MEAN CORPUSCULAR HGB CONC 33 g/dl (31.0-36.0); MEAN CORPUSCULAR VOLUME 90 fL (82-100); MONOCYTES # (AUTO) 0.5 K/uL (0.1-1.30); NEUTROPHILS # (AUTO) 6.7 K/uL (1.8-8.9); NEUTROPHILS % (AUTO) 75.8 % (43.0-81.0); PLATELET COUNT (AUTO) 352 K/uL (150-450); RED BLOOD CELL COUNT(AUTO) 3.47 MIL/uL (4.0-5.2); WHITE BLOOD COUNT (AUTO) 8.8 K/uL (4.3-11.0)
[2022-07-28 06:30] LABS: CALCIUM, SERUM 8.5 mg/dL (8.5-10.1); CARBON DIOXIDE 27 mmol/L (21-32); CHLORIDE 109 mmol/L (98-107); CREATININE 0.5 mg/dL (0.6-1.3); GLUCOSE 109 mg/dL (74-106); MAGNESIUM 2.1 mg/dL (1.8-2.4); PHOSPHORUS 3.1 mg/dL (2.5-4.9); SODIUM SERUM 145 mmol/L (136-145); UREA NITROGEN, BLOOD 27 mg/dL (7-18)
[2022-07-28 06:31] LABS: POTASSIUM 2.4 mmol/L (3.5-5.1)
[2022-07-28] MEDS: BLOOD SUGAR DIAGNOSTIC 1 EACH STRIP IN SCH ×4 (06:40→21:05)
[2022-07-28] MEDS: INSULIN REGULAR, HUMAN 100 UNIT/ML 3 ML VIAL SQ PRN ×2 (06:40→21:06)
--- NOTE | 2022-07-28 06:41 | NUR ---
noc rn note blood sugar 122 this am. no coverage needed.
[2022-07-28 07:00] VITALS: BP 122/73
--- NOTE | 2022-07-28 07:35 | NUR ---
rn opening note Patient in bed with with eyes closed easy to arouse. No s/s of apparent distress on room air. No c/o pain.a/ox1-2 tele reading sr hr 80. Abdomen still distended but soft upon palpation now. Safety kept in place throughout shift. Patient is for D/C planning. Will endorse to morning shift rn for continuity of ca Addendum: 07/28/22 at 1033 by CAROLYN RUFFIN RN Will continue to monitor
--- NOTE | 2022-07-28 07:35 | NUR ---
Noc rn closing note Patient in bed with with eyes closed easy to arouse. No s/s of apparent distress on room air. No c/o pain. All needs attended. Reading sr this am on the tele monitor. All scheduled medications administered. Patient has been passing a lot of gas with X1 BM, abdomen still distended but soft upon palpation now. Safety kept in place throughout shift. Patient is for D/C planning. Will endorse to morning shift rn for continuity of care.
[2022-07-28] MEDS: PANTOPRAZOLE 40 MG TABLET.DR PO SCH (08:28)
[2022-07-28] MEDS ORDERED: NS 0.9% IV ONE (08:30)
[2022-07-28] MEDS ORDERED: LIDOCAINE HCL IV ONE (08:30)
[2022-07-28] MEDS ORDERED: POTASSIUM CHLORIDE IV ONE (08:30)
[2022-07-28] MEDS: MEGESTROL ACETATE SUSP 400 MG/10 ML UDC PO SCH (08:50)
[2022-07-28] MEDS: GLUCERNA SHAKE 237 ML CAN PO SCH ×2 (08:51→17:11)
[2022-07-28] MEDS: DIVALPROEX SODIUM 250 MG TABLET.DR PO SCH ×3 (08:51→17:11)
[2022-07-28] MEDS: QUETIAPINE FUMARATE 25 MG TABLET PO SCH ×3 (08:51→22:28)
[2022-07-28] MEDS: ASCORBIC ACID 500 MG TABLET PO SCH (08:51)
[2022-07-28] MEDS: PROSOURCE / PROSTAT (PYXIS) 30 ML UDC GT SCH ×2 (08:52→17:28)
[2022-07-28] MEDS ORDERED: POTASSIUM CHLORIDE 20 MEQ TAB.PRT.SR PO ONE (09:00)
[2022-07-28] MEDS: Potassium Chloride 10 MEQ, LIDOCAINE HCL/PF 1% 1 ML in IV NS 0.9% 50 ML IV SCH ×6 (10:19→15:39)
--- NOTE | 2022-07-28 10:33 | NUR ---
rn notes Patient potassium level was 2.4, patient responsive with no signs of distress, conscious and coherent. notified Albaro Sosa DITCHING MACHINE OPERATOR with new orders. new orders has been carried out.
[2022-07-28 12:00] VITALS: BP 111/59
[2022-07-28 17:05] VITALS: BP 121/87
[2022-07-28] MEDS: MIRTAZAPINE 15 MG TABLET PO SCH (17:11)
--- NOTE | 2022-07-28 18:46 | NUR ---
rn closing note Patient awake in bed, a/ox3. No s/s of apparent distress on room air. No c/o pain. All needs attended. Reading sr/st hr 90-100's on tele monitor. All scheduled medications administered. Patient has been passing a lot of gas with X1 BM, abdomen still distended but soft upon palpation now. Patient was verbally aggressive in the morning but was very pleasant and cooperative in the afternoon. Patient was compliant with medications during shift. Safety kept in place throughout shift. D/C planning held due to patient's low potassium level. Will endorse to manager shift rn for continuity of care.
--- NOTE | 2022-07-28 19:00 | NUR ---
RN OPENING NOTE RECEIVED REPORT FR. NURSE CAROLYN. PT IS ASLEEP IN BED. A/OX1-2. PT IS IN RA TOLERATING WELL, BREATHING EVEN AND UNLABORED @ THIS TIME. PT IV PRESENT ON LEFT AC #18G SALINE LOCK, PATENT, INTACT AND FLUSHES WELL W/ NO S & SX OF INFILTRATION @ SITE NOTED. PT IS ON DIAPER. PT IS ON TELE MONITOR WITH CURRENT READING OF SINUS TACHYCARDIA, HR 103 BPM. SAFETY MEASURES IS IN PLACE. BED AT LOWEST AND LOCKED POSITION. SIDE RAILS UP X 3. BEDSIDE TABLE AND CALL LIGHT IS EASY REACH. BED ALARM IS ON. WILL CONTINUE TO MONITOR PT ACCORDINGLY.
[2022-07-28 20:00] VITALS: BP 124/64
[2022-07-28] MEDS: ENOXAPARIN SODIUM 40 MG/0.4 ML DISP.SYRIN SQ SCH (20:29)
--- NOTE | 2022-07-28 21:06 | NUR ---
HELD INSULIN REGULAR D/T PT GLUCOSE OF 95.
[2022-07-29] VITALS: BP 123/63
[2022-07-29] MEDS: LACTULOSE 10 G/15 ML UDC (PYXIS) PO SCH ×6 (03:39→20:21)
[2022-07-29 04:00] VITALS: BP 123/69
[2022-07-29] MEDS: ZOSYN IVPB 2.25 G in IV D5W 50ml IV SCH ×3 (05:09→17:19)
[2022-07-29] MEDS: INSULIN REGULAR, HUMAN 100 UNIT/ML 3 ML VIAL SQ PRN ×2 (06:17→21:59)
[2022-07-29] MEDS: BLOOD SUGAR DIAGNOSTIC 1 EACH STRIP IN SCH ×4 (06:17→21:58)
--- NOTE | 2022-07-29 06:18 | NUR ---
HELD INSULIN REGULAR D/T PT BLOOD GLUCOSE OF 96.
[2022-07-29 06:30] LABS: BASOPHILS % (AUTO) 0.3 % (0.0-2.0); EOSINOPHILS % (AUTO) 0.1 % (0.0-6.0); HEMATOCRIT 32 % (33-45); HEMOGLOBIN 10.1 g/dL (11.5-14.8); LYMPHOCYTES # (AUTO) 1.7 K/uL (0.8-4.8); LYMPHOCYTES % (AUTO) 18.7 % (20.0-44.0); MEAN CORPUSCULAR HGB CONC 32 g/dl (31.0-36.0); MEAN CORPUSCULAR VOLUME 90 fL (82-100); MONOCYTES # (AUTO) 0.6 K/uL (0.1-1.30); MONOCYTES % (AUTO) 6.6 % (2.0-12.0); NEUTROPHILS # (AUTO) 6.6 K/uL (1.8-8.9); NEUTROPHILS % (AUTO) 74.3 % (43.0-81.0); PLATELET COUNT (AUTO) 344 K/uL (150-450); WHITE BLOOD COUNT (AUTO) 8.8 K/uL (4.3-11.0)
--- NOTE | 2022-07-29 06:49 | NUR ---
RN CLOSING NOTE PT IS DOZING INTERMITTENTLY & RESTING COMFORTABLY IN BED. A/OX1-2, CONFUSED. PT IS IN RA W/ NO S & SX OF RESPIRATORY DISTRESS @ THIS TIME. PT IV PRESENT ON LEFT AC #18G SALINE LOCK, PATENT, INTACT AND FLUSHES WELL W/ NO S & SX OF INFILTRATION @ SITE NOTED. PT DIAPER CHANGED X2. PT KEPT CLEAN, DRY AND COMFORTABLE. PT IS ON TELE MONITOR WITH CURRENT READING OF SINUS RHYTHM HR 83 BPM. ADMINISTERED MEDICATION ACCORDINGLY ACCORDING TO MD'S ORDER. SAFETY MEASURES IS IN PLACE. BED AT LOWEST AND LOCKED POSITION. SIDE RAILS UP X 3. BEDSIDE TABLE AND CALL LIGHT IS EASY REACH. BED ALARM IS ON. WILL ENDORSE TO THE NEXT SHIFT FOR CONTINUITY OF CARE.
[2022-07-29 07:00] VITALS: BP 136/77
[2022-07-29 07:13] LABS: CALCIUM, SERUM 8.5 mg/dL (8.5-10.1); CARBON DIOXIDE 27 mmol/L (21-32); CHLORIDE 110 mmol/L (98-107); CREATININE 0.6 mg/dL (0.6-1.3); GLUCOSE 107 mg/dL (74-106); PHOSPHORUS 2.8 mg/dL (2.5-4.9); POTASSIUM 3.1 mmol/L (3.5-5.1); SODIUM SERUM 145 mmol/L (136-145); UREA NITROGEN, BLOOD 24 mg/dL (7-18)
--- NOTE | 2022-07-29 08:00 | NUR ---
RN OPENING NOTE RECEIVED PATIENT IN BED, AO X 1-2. PATIENT IS CONFUSED AND COMBATIVE OCCASIONALLY, NO ACUTE DISTRESS OBSERVED. PATIENT ON ROOM AIR TOLERATING WELL, BREATHING EVENLY AND UNLABORED. SKIN IS WARM TO TOUCH KEEP CLEAN/DRY. KEPT ELEVATED HOB FOR ENSURE AIRWAY/ASPIRATION PRECAUTION, SAFETY MEASURE IN PLACED; BED IS LOCKED AND IN LOWEST POSITION. BED ALARM IS ON AT ALL TIMES FOR SAFETY. NOTICED THE PATIENT HR DECREASED 30'S AND INCREASED UP TO 120'S FLUCTUATE, EKG STAT DONE, IT SHOWS SINUS TACHY CARDIA. MD MADE AWARE REGARDING ABOVE. CALL LIGHT WITHIN REACH. WILL CONTINUE TO MONITOR.
[2022-07-29] MEDS: PROSOURCE / PROSTAT (PYXIS) 30 ML UDC GT SCH ×2 (09:07→17:00)
[2022-07-29] MEDS: DIVALPROEX SODIUM 250 MG TABLET.DR PO SCH ×3 (09:08→17:20)
[2022-07-29] MEDS: QUETIAPINE FUMARATE 25 MG TABLET PO SCH ×3 (09:08→21:33)
[2022-07-29] MEDS: ASCORBIC ACID 500 MG TABLET PO SCH (09:08)
[2022-07-29] MEDS: PANTOPRAZOLE 40 MG TABLET.DR PO SCH (09:08)
[2022-07-29] MEDS: MEGESTROL ACETATE SUSP 400 MG/10 ML UDC PO SCH (09:09)
[2022-07-29] MEDS: GLUCERNA SHAKE 237 ML CAN PO SCH ×2 (09:09→17:29)
--- NOTE | 2022-07-29 10:56 | NUR ---
PATIENT NOTICED POTASSIUM LEVEL IS LOW; 3.1 THIS MORNING, PLACED NEW ORDER POTASSIUM 40 MEQ PO X ONE.
[2022-07-29] MEDS ORDERED: POTASSIUM CHLORIDE 20 MEQ TAB.PRT.SR PO SCH (11:00)
[2022-07-29] MEDS ORDERED: POTASSIUM CHLORIDE 20 MEQ TAB.PRT.SR PO ONE (11:30)
[2022-07-29] MEDS ORDERED: POLY17PO4 PO (14:36)
--- NOTE | 2022-07-29 16:46 | NUR ---
PATIENT REFUSED TO CHECK DIAPER STATED "GET OUT FROM HERE" AND STARTED AGITATE.
[2022-07-29] MEDS: MIRTAZAPINE 15 MG TABLET PO SCH (17:20)
--- NOTE | 2022-07-29 18:31 | NUR ---
RN CLOSING NOTE PATIENT RESTING IN BED. CONFUSED AND COMBATIVE OCCASIONALLY, IN NO ACUTE DISTRESS OBSERVED. RESPIRATORY EVEN AND UNLABORED IN ROOM AIR. SKIN IS WARM TO TOUCH KEEP CLEAN/DRY. C/O LEFT HIP PAIN KEPT ELEVATED HOB FOR ENSURE AIRWAY/ASPIRATION PRECAUTION, AND LOWEST BED POSITION. BED ALARM IS ON AT ALL THE TIME FOR SAFETY. PATIENT D/C TO [facility] TOMORROW, LUNCHROOM FOOD SERVICE SUPERVISOR TIME AT 10 AM, AND INFORMED SON/KIRIT. CALL LIGHT WITHIN REACH, WILL ENDORSE SHEET COMBINING OPERATOR. Addendum: 07/29/22 at 1839 by QUIN QUINONES RN ERROR
--- NOTE | 2022-07-29 18:39 | NUR ---
RN CLOSING NOTE PATIENT RESTING IN BED, CONFUSED AND COMBATIVE OCCASIONALLY. IN NO ACUTE DISTRESS OBSERVED. RESPIRATORY EVEN AND UNLABORED IN ROOM AIR. SKIN IS WARM TO TOUCH KEEP CLEAN/DRY. KEPT ELEVATED HOB FOR ENSURE AIRWAY/ASPIRATION PRECAUTION, AND LOWEST BED POSITION. BED ALARM IS ON AT ALL TIMES FOR SAFETY. PATIENT D/C TO [facility] TOMORROW, DRESSMAKER OR TAILOR TIME AT 10 AM, INFORMED SON/KIRIT REGARDING ABOVE. CALL LIGHT WITHIN REACH, WILL ENDORSE ON CALL PHARMACY TECHNICIAN.
[2022-07-29 20:00] VITALS: BP 114/64
--- NOTE | 2022-07-29 20:00 | NUR ---
RECEIVED PATIENT IN BED, ALERT/ORIENTED X1, ROOM AIR, NOT IN APPARENT PAIN, HOSTILE, COMBATIVE, HIT RN ON THE ARM. SR ON THE TELE, HAS BM X1, REPOSITIONED FOR COMFORT, KEPT SAFE, WILL CONTINUE TO MONITOR.
--- NOTE | 2022-07-29 20:22 | NUR ---
LACTULOSE REFUSED, SPIT OUT MEDICATION, COMBATIVE AND AGITATED.
[2022-07-29] MEDS: ENOXAPARIN SODIUM 40 MG/0.4 ML DISP.SYRIN SQ SCH (21:32)
--- NOTE | 2022-07-29 21:59 | NUR ---
BG 92, INSULIN NOT GIVEN, WILL PROVIDE SNACKS DURING THE NIGHT
[2022-07-30] VITALS: BP 91/48
[2022-07-30] MEDS: ZOSYN IVPB 2.25 G in IV D5W 50ml IV SCH ×2 (00:12→05:56)
[2022-07-30 04:00] VITALS: BP 115/60
[2022-07-30] MEDS: LACTULOSE 10 G/15 ML UDC (PYXIS) PO SCH ×2 (04:24→08:00)
--- NOTE | 2022-07-30 06:10 | NUR ---
ALERT AND ORIENTED X1, CONFUSED, ROOM AIR, NO COMPLAIN OF PAIN, COMBATIVE, HOSTILE, VERBALLY ABUSIVE. SELECTIVE WITH MEDS, BMX2, NO AM LABS, DISCHARGE TODAY.
[2022-07-30] MEDS: BLOOD SUGAR DIAGNOSTIC 1 EACH STRIP IN SCH (06:30)
[2022-07-30] MEDS: PANTOPRAZOLE 40 MG TABLET.DR PO SCH (07:30)
--- NOTE | 2022-07-30 07:39 | NUR ---
RN OPENING NOTE RECEIVED PATIENT IN BED, AO X 1, CONFUSED AND COMBATIVE. SKIN IS WARM TO TOUCH KEEP CLEAN/DRY. RESPIRATORY EVEN AND UNLABORED IN ROOM AIR, IN NO RESPIRATORY DISTRESS OBSERVED. KEPT ELEVATED HOB FOR ENSURE AIRWAY/ASPIRATION PRECAUTION, SAFETY MEASURE IN PLACED; BED IS LOCK AND IN LOWEST POSITION. BED ALARM IS ON AT ALL TIMES FOR SAFETY. CALL LIGHT WITHIN REACH.
[2022-07-30] MEDS: DIVALPROEX SODIUM 250 MG TABLET.DR PO SCH (08:29)
[2022-07-30] MEDS: MEGESTROL ACETATE SUSP 400 MG/10 ML UDC PO SCH (08:29)
[2022-07-30] MEDS: GLUCERNA SHAKE 237 ML CAN PO SCH (08:30)
[2022-07-30] MEDS: QUETIAPINE FUMARATE 25 MG TABLET PO SCH (08:30)
[2022-07-30] MEDS: ASCORBIC ACID 500 MG TABLET PO SCH (08:30)
[2022-07-30] MEDS: PROSOURCE / PROSTAT (PYXIS) 30 ML UDC GT SCH (08:38)
--- NOTE | 2022-07-30 09:08 | NUR ---
THE PATIENT D/C TO [facility], GIVEN REPORT LONG/RN INCLUDE POTATO CHIP PACKAGING MACHINE OPERATOR TIME.
[2022-07-30 09:26] VITALS: BP 117/56
--- NOTE | 2022-07-30 10:12 | NUR ---
2 rn lpn cna PICKED UP THE PATIENT AND GIVEN REPORT. WOUND PICTURES TAKEN EXCEPT BILATERAL LOWER EXTREMITIES DUE TO THE PATIENT STARTED AGITATE. REMOVED IV LINE AND MANAGER MARKET DEVELOPMENT BOX PREVIOUSLY.
== END 2022-07-30 13:01 | DRG 388 ==
LOC: ER 07-23 00:10 → TELE 07-23 08:02
PROVIDERS: ATTEND Nurse Practitioner Acute Care
DX: K56.600 Partial intestinal obstruction, unspecified as to cause (principal); G93.41 Metabolic encephalopathy; F03.92 Unspecified dementia, unspecified severity, with psychotic disturbance; J98.11 Atelectasis; K56.7 Ileus, unspecified; K62.89 Other specified diseases of anus and rectum; E87.6 Hypokalemia; E11.9 Type 2 diabetes mellitus without complications; K21.9 Gastro-esophageal reflux disease without esophagitis; I10 Essential (primary) hypertension; Z96.643 Presence of artificial hip joint, bilateral; K59.00 Constipation, unspecified; N83.8 Other noninflammatory disorders of ovary, fallopian tube and broad ligament; D72.829 Elevated white blood cell count, unspecified; J44.9 Chronic obstructive pulmonary disease, unspecified; N32.3 Diverticulum of bladder; Z91.013 Allergy to seafood; Z20.822 Contact with and (suspected) exposure to COVID-19
CPT/HCPCS: 36415; 71045-TC; 76770-TC; 80048-TC; 80053-TC; 80076-TC; 81001; 82570-TC; 82962-TC; 83605-TC; 83690-TC; 83735-TC; 84100-TC; 84132-TC; 84300-TC; 85025-TC; 87081-TC; 87086-TC; A4223; C9113; C9803; G0378; J1650; J1815; J2543; J3480; J3490; J7030; J7050; J7060; Q9963